=== PATIENT | male | born 1990 | race Two or more races ===

== ENCOUNTER 2021-01-18 01:01 | Inpatient (IN) | payer OTHER ==
[~2021-01-18] VITALS: Ht 170.2 cm; Wt 53.8 kg
[2021-01-18] MEDS ORDERED: EPINEPHrine 1:10,000 [1 MG/10 ML] SYRINGE IVP ONE (01:02)
[2021-01-18] MEDS ORDERED: ATROPINE SULFATE 0.1 MG/ML 10 ML SYRINGE IVP ONE (01:02)
[2021-01-18] MEDS ORDERED: AMIODARONE HCL 50 MG/ML 3 ML VIAL IV ONE (01:02)
[2021-01-18] MEDS ORDERED: SODIUM BICARBONATE [ADULT] 8.4% 50 MEQ/50 ML SYRINGE IVP ONE ×2 (01:02→02:30)
[2021-01-18] MEDS ORDERED: NOREPINEPHRINE 4 MG/D5%-WATER 250 ML IV PRN (01:15)
[2021-01-18] MEDS ORDERED: LevETIRAcetam 1,500 MG in DEXTROSE 5%-WATER 100 ML IV ONE (01:45)
[2021-01-18 02:17] LABS: ABG A-A DIFF O2 248.2 mmHg (10-20.0); ABG BASE EXCESS -26.5 mmol/L (-2.0-3.0); ABG CARBOXYHEMOGLOBIN 0.2 % (0.0-1.5); ABG METHEMOGLOBIN 0.2 % (0.0-1.5); ABG OXYGEN CONTENT 16.8 mL/dL (15.0-23.0); ABG OXYGEN SATURATION 99.4 % (95.0-98.0); ABG PCO2 37 mmHg (35-45); ABG TOTAL HEMOGLOBIN 11.2 G/dL (12.0-18.0); PO2, ARTERIAL BG 427.8 mmHg (92.0-100.0); SOURCE, BLOOD GAS ARTERIAL; TEMPERATURE, FAHRENHEIT, BG 98.7 FAHREN (96.0-98.6)
[2021-01-18 02:20] LABS: COVID AG,FIA SOURCE NASOPHARYNGEAL
[2021-01-18 02:23] LABS: ABG HCO3 6.4 mmol/L (22.0-26.0); ABG PH 6.881 (7.350-7.450); O2 DEVICE,BLOOD GAS VENTILATOR (ROOM AIR); PEEP,BG 5 cm H2O; SITE, BLOOD GAS RT RADIAL; VT, ABG 420 ml
[2021-01-18 02:25] LABS: BASOPHILS % (AUTO) 0.6 % (0.0-2.0); EOSINOPHILS % (AUTO) 1.9 % (1.0-6.0); HEMATOCRIT 32.4 % (41-53); LYMPHOCYTES # (AUTO) 5.1 K/uL (1.0-4.8); LYMPHOCYTES % (AUTO) 17.7 % (22.0-44.0); MEAN CORPUSCULAR HEMOGLOBIN 30.1 pg (26.0-34.0); MEAN CORPUSCULAR VOLUME 97 fL (80-100); MONOCYTES # (AUTO) 1.2 K/uL (0.1-1.0); MONOCYTES % (AUTO) 4.1 % (2.0-9.0); NEUTROPHILS # (AUTO) 21.5 K/uL (1.8-7.7); NEUTROPHILS % (AUTO) 75.7 % (40.0-70.0); PLATELET COUNT (AUTO) 267 K/uL (150-450); RED BLOOD CELL COUNT(AUTO) 3.33 MIL/uL (4.50-5.90); RED CELL DISTRIBUTION WIDTH 14.3 % (11.5-14.5)
[2021-01-18] MEDS ORDERED: SODIUM BICARBONATE 150 MEQ in DEXTROSE 5%-WATER 1,000 ML IV ONE (02:30)
[2021-01-18] MEDS ORDERED: EPINEPHrine 2 MG in DEXTROSE 5%-WATER 248 ML IV PRN (02:30)
[2021-01-18 02:35] LABS: ANION GAP 25 mmol/L (8-16); CALCIUM, TOTAL 9.5 mg/dL (8.8-10.5); CARBON DIOXIDE 11 mmol/L (22-29); CHLORIDE 109 mmol/L (98-107); CREATININE 1.83 mg/dL (0.60-1.30); GLOMERULAR FILTR. RATE CALC 44 mL/min (>60); GLUCOSE,RANDOM 273 mg/dL (70-110); POTASSIUM 3.9 mmol/L (3.5-5.1); SODIUM SERUM 145 mmol/L (136-145); UREA NITROGEN, BLOOD 10 mg/dL (7-18)
[2021-01-18 02:43] LABS: TROPONIN I 0.03 ng/mL (0.00-0.05)
[2021-01-18 02:45] LABS: INR 1.4 (0.9-1.1); PROTHROMBIN TIME 14.6 SEC (9.4-11.6)
[2021-01-18] MEDS ORDERED: 0.9% SODIUM CHLORIDE 10 ML SYRINGE IVP PRN (03:00)
[2021-01-18] MEDS ORDERED: PIPERACILLIN/TAZO 3.375 GM/D5W 50 ML IV SCH (03:00)
[2021-01-18] MEDS ORDERED: ONDANSETRON HCL 4 MG/2 ML VIAL IVP PRN (03:00)
[2021-01-18] MEDS ORDERED: ACETAMINOPHEN 325 MG TABLET PO PRN (03:00)
[2021-01-18 03:01] LABS: ALBUMIN 2.4 g/dL (3.4-5.0); ALKALINE PHOSPHATASE 104 U/L (46-116); BILIRUBIN,TOTAL 0.1 mg/dL (0.1-1.0); CREATINE KINASE, TOTAL ONLY 291 U/L (39-308); TOTAL PROTEIN, SERUM 5.1 g/dL (6.4-8.2)
[2021-01-18] MEDS: PROPOFOL 1000 MG/ISO-OSM 100 ML IV PRN ×2 (03:16→14:14)
[2021-01-18] MEDS ORDERED: IOHEXOL 350 MG/ML 100 ML VIAL ONE (03:25)
[2021-01-18] MEDS ORDERED: SODIUM CHLORIDE 0.9% 100 ML ONE (03:25)
[2021-01-18 03:27] LABS: APPEARANCE,URINE CLOUDY (CLEAR); BILIRUBIN,URINE NEGATIVE (NEGATIVE); GLUCOSE, URINE (UA) 250 mg/dL (NEGATIVE); KETONES,URINE NEGATIVE (NEGATIVE); LEUKOCYTE ESTERASE ,URINE NEGATIVE (NEGATIVE); NITRATE,URINE NEGATIVE (NEGATIVE); OCCULT BLOOD,URINE LARGE (NEGATIVE); PROTEIN,URINE SEE CONFIRM (NEGATIVE); UROBILINOGEN,URINE 0.2 mg/dL (<=1.0)
[2021-01-18] MEDS ORDERED: RISP1TAB48 PO (03:31)
[2021-01-18] MEDS ORDERED: FLUO10CA24 PO (03:31)
[2021-01-18 03:32] LABS: AMPHET/METH SCREEN,URINE NEGATIVE (NEGATIVE); BARBITURATE SCREEN, URINE NEGATIVE (NEGATIVE); BENZODIAZEPINES SCREEN,URINE POSITIVE (NEGATIVE); CANNABINOID SCREEN,URINE NEGATIVE (NEGATIVE); COCAINE SCREEN,URINE POSITIVE (NEGATIVE); METHADONE SCREEN, URINE NEGATIVE (NEGATIVE); OPIATE SCREEN,URINE NEGATIVE (NEGATIVE)
[2021-01-18 03:32] LABS: ALANINE AMINOTRANSFERASE 1277 U/L (12-78); ASPARTATE AMINOTRANSFERASE 1073 U/L (15-37)
[2021-01-18 03:33] LABS: PHENCYCLIDINE SCREEN,URINE NEGATIVE (NEGATIVE)
[2021-01-18 03:36] LABS: LACTIC ACID 24.2 mmol/L (0.4-2.0)
[2021-01-18] MEDS ORDERED: SODIUM CHLORIDE 0.9% 1,000 ML IV ONE (03:45)
[2021-01-18 04:19] LABS: AMORPHOUS SEDIMENT,UR Few /LPF (None Seen); BACTERIA,URINE Few /HPF (None Seen)
[2021-01-18 04:20] LABS: SULFOSALICYLIC ACID,URINE 2+ (Negative)
[2021-01-18 04:22] LABS: ACETAMINOPHEN < 2 mcg/mL (10-30)
[2021-01-18 04:23] LABS: SALICYLATE 2.3 mg/dL (2.8-20.0)
[2021-01-18 05:12] LABS: ABG A-A DIFF O2 117.7 mmHg (10-20.0); ABG BASE EXCESS -2.7 mmol/L (-2.0-3.0); ABG CARBOXYHEMOGLOBIN 0.3 % (0.0-1.5); ABG HCO3 22.4 mmol/L (22.0-26.0); ABG METHEMOGLOBIN 0.3 % (0.0-1.5); ABG OXYGEN CONTENT 16.6 mL/dL (15.0-23.0); ABG OXYGEN SATURATION 97.7 % (95.0-98.0); ABG OXYHEMOGLOBIN 97.1 % (94.0-100.0); ABG PCO2 41 mmHg (35-45); ABG PH 7.366 (7.350-7.450); O2 DEVICE,BLOOD GAS VENTILATOR (ROOM AIR); PEEP,BG 5 cm H2O; PO2, ARTERIAL BG 120.9 mmHg (92.0-100.0); SITE, BLOOD GAS LFT RADIAL; SOURCE, BLOOD GAS ARTERIAL; TEMPERATURE, FAHRENHEIT, BG 98.6 FAHREN (96.0-98.6); VT, ABG 420 ml
[2021-01-18 06:21] LABS: PLATELET MORPHOLOGY COMMENT LARGE PLTS PRESENT
[2021-01-18 06:56] LABS: BASOPHILS % (AUTO) 0.1 % (0.0-2.0); EOSINOPHILS % (AUTO) 0.2 % (1.0-6.0); HEMATOCRIT 34.4 % (41-53); HEMOGLOBIN 11.6 g/dL (13.5-17.5); LYMPHOCYTES # (AUTO) 0.6 K/uL (1.0-4.8); LYMPHOCYTES % (AUTO) 3.9 % (22.0-44.0); MEAN CORPUSCULAR HEMOGLOBIN 30.5 pg (26.0-34.0); MEAN CORPUSCULAR HGB CONC 33.8 G/dL (31.0-37.0); MEAN CORPUSCULAR VOLUME 90 fL (80-100); MONOCYTES # (AUTO) 0.9 K/uL (0.1-1.0); MONOCYTES % (AUTO) 5.6 % (2.0-9.0); NEUTROPHILS # (AUTO) 14.7 K/uL (1.8-7.7); PLATELET COUNT (AUTO) 222 K/uL (150-450); RED BLOOD CELL COUNT(AUTO) 3.81 MIL/uL (4.50-5.90); RED CELL DISTRIBUTION WIDTH 14.3 % (11.5-14.5)
[2021-01-18 07:00] LABS: NEUTROPHILS % (AUTO) 90.2 % (40.0-70.0); PLATELET MORPHOLOGY COMMENT LARGE PLTS PRESENT
[2021-01-18] MEDS ORDERED: PANTOPRAZOLE SODIUM 40 MG/VIAL IVP SCH (07:45)
[2021-01-18] MEDS: PIPERACILLIN/TAZO 3.375 GM/D5W 50 ML IV SCH ×3 (09:06→21:04)
[2021-01-18] MEDS: LevETIRAcetam 500 MG in DEXTROSE 5%-WATER 100 ML IV SCH ×2 (09:08→20:44)
[2021-01-18 09:47] LABS: ANION GAP 6 mmol/L (8-16); CALCIUM, TOTAL 7.7 mg/dL (8.8-10.5); CARBON DIOXIDE 34 mmol/L (22-29); CHLORIDE 107 mmol/L (98-107); CREATININE 1.26 mg/dL (0.60-1.30); GLOMERULAR FILTR. RATE CALC > 60 mL/min (>60); GLUCOSE,RANDOM 123 mg/dL (70-110); POTASSIUM 3.2 mmol/L (3.5-5.1); SODIUM SERUM 147 mmol/L (136-145); UREA NITROGEN, BLOOD 11 mg/dL (7-18)
[2021-01-18 09:52] LABS: ANION GAP 8 mmol/L (8-16); CALCIUM, TOTAL 7.3 mg/dL (8.8-10.5); CARBON DIOXIDE 32 mmol/L (22-29); CHLORIDE 107 mmol/L (98-107); CREATININE 1.32 mg/dL (0.60-1.30); GLOMERULAR FILTR. RATE CALC > 60 mL/min (>60); GLUCOSE,RANDOM 124 mg/dL (70-110); POTASSIUM 3.3 mmol/L (3.5-5.1); SODIUM SERUM 147 mmol/L (136-145); UREA NITROGEN, BLOOD 11 mg/dL (7-18)
[2021-01-18 10:01] LABS: TROPONIN I 1.48 ng/mL (0.00-0.05)
[2021-01-18 10:04] LABS: PHOSPHORUS 3.5 mg/dL (2.5-4.9)
[2021-01-18 10:11] LABS: ALANINE AMINOTRANSFERASE 1522 U/L (12-78); ALBUMIN 3.2 g/dL (3.4-5.0); ALKALINE PHOSPHATASE 78 U/L (46-116); TOTAL PROTEIN, SERUM 6.2 g/dL (6.4-8.2)
[2021-01-18 10:12] LABS: ASPARTATE AMINOTRANSFERASE 1903 U/L (15-37); CREATINE KINASE, TOTAL ONLY 2311 U/L (39-308)
[2021-01-18] MEDS ORDERED: PANTOPRAZOLE SODIUM 40 MG/VIAL IVP ONE (17:45)
[2021-01-18] MEDS: POTASSIUM CHLORIDE IV SCH (18:05)
[2021-01-18] MEDS: SODIUM CHL IV SCH (18:05)
[2021-01-18] MEDS: DEXTROSE IV SCH (18:05)
[2021-01-18] MEDS: LORazepam 2 MG/ML VIAL IVP PRN (19:58)
[2021-01-18 21:02] LABS: ABG A-A DIFF O2 26.8 mmHg (10-20.0); ABG BASE EXCESS 2.3 mmol/L (-2.0-3.0); ABG CARBOXYHEMOGLOBIN 0.3 % (0.0-1.5); ABG HCO3 26.1 mmol/L (22.0-26.0); ABG METHEMOGLOBIN 0.2 % (0.0-1.5); ABG OXYGEN CONTENT 18.8 mL/dL (15.0-23.0); ABG OXYHEMOGLOBIN 98.5 % (94.0-100.0); ABG PCO2 39 mmHg (35-45); ABG PH 7.443 (7.350-7.450); ABG TOTAL HEMOGLOBIN 13.3 G/dL (12.0-18.0); PO2, ARTERIAL BG 179.9 mmHg (92.0-100.0); SOURCE, BLOOD GAS ARTERIAL; TEMPERATURE, FAHRENHEIT, BG 92.2 FAHREN (96.0-98.6)
[2021-01-18 21:03] LABS: O2 DEVICE,BLOOD GAS VENTILATOR (ROOM AIR); PEEP,BG 5 cm H2O; SITE, BLOOD GAS RT RADIAL; VT, ABG 420 ml
[2021-01-18 21:12] LABS: BASOPHILS % (AUTO) 0.2 % (0.0-2.0); EOSINOPHILS % (AUTO) 0.1 % (1.0-6.0); HEMATOCRIT 36.9 % (41-53); HEMOGLOBIN 12.4 g/dL (13.5-17.5); LYMPHOCYTES # (AUTO) 0.7 K/uL (1.0-4.8); LYMPHOCYTES % (AUTO) 4.7 % (22.0-44.0); MEAN CORPUSCULAR HEMOGLOBIN 30.1 pg (26.0-34.0); MEAN CORPUSCULAR HGB CONC 33.6 G/dL (31.0-37.0); MEAN CORPUSCULAR VOLUME 90 fL (80-100); MONOCYTES # (AUTO) 0.7 K/uL (0.1-1.0); MONOCYTES % (AUTO) 4.5 % (2.0-9.0); NEUTROPHILS # (AUTO) 13.8 K/uL (1.8-7.7); PLATELET COUNT (AUTO) 211 K/uL (150-450); RED BLOOD CELL COUNT(AUTO) 4.13 MIL/uL (4.50-5.90); RED CELL DISTRIBUTION WIDTH 14.4 % (11.5-14.5)
[2021-01-18 21:28] LABS: NEUTROPHILS % (AUTO) 90.5 % (40.0-70.0)
[2021-01-18 21:48] LABS: MAGNESIUM 2.2 mg/dL (1.80-2.40); PHOSPHORUS 3.7 mg/dL (2.5-4.9)
[2021-01-18] MEDS: NOREPINEPHRINE 4 MG/D5%-WATER 250 ML IV PRN (22:49)
[2021-01-18 22:55] LABS: APPEARANCE,URINE CLEAR (CLEAR); BILIRUBIN,URINE NEGATIVE (NEGATIVE); GLUCOSE, URINE (UA) 250 mg/dL (NEGATIVE); KETONES,URINE NEGATIVE (NEGATIVE); LEUKOCYTE ESTERASE ,URINE NEGATIVE (NEGATIVE); NITRATE,URINE NEGATIVE (NEGATIVE); OCCULT BLOOD,URINE LARGE (NEGATIVE); PROTEIN,URINE SEE CONFIRM (NEGATIVE); UROBILINOGEN,URINE 0.2 mg/dL (<=1.0)
[2021-01-18 22:57] LABS: CREATININE,URINE RANDOM 67.2 mg/dL (30.0-125.0); SODIUM,URINE RANDOM 168 mmol/l (20-110); UREA NITROGEN,URINE RANDOM 249 mg/dL (350-1000)
[2021-01-18 23:05] LABS: RBC,URINE 0-2 /HPF (0-2)
[2021-01-18 23:06] LABS: BACTERIA,URINE Rare /HPF (None Seen); SQUAMOUS EPITHELIAL CELL,UR None Seen /LPF (None Seen)
[2021-01-19] MEDS: PROPOFOL 1000 MG/ISO-OSM 100 ML IV PRN ×4 (00:22→22:11)
[2021-01-19] MEDS: DEXTROSE IV SCH ×3 (01:54→19:09)
[2021-01-19] MEDS: POTASSIUM CHLORIDE IV SCH ×3 (01:54→19:09)
[2021-01-19] MEDS: SODIUM CHL IV SCH ×3 (01:54→19:09)
[2021-01-19 02:33] LABS: BASOPHILS % (AUTO) 0.2 % (0.0-2.0); EOSINOPHILS % (AUTO) 0.2 % (1.0-6.0); HEMATOCRIT 38.4 % (41-53); HEMOGLOBIN 12.8 g/dL (13.5-17.5); LYMPHOCYTES # (AUTO) 1.1 K/uL (1.0-4.8); LYMPHOCYTES % (AUTO) 6.6 % (22.0-44.0); MEAN CORPUSCULAR HEMOGLOBIN 29.8 pg (26.0-34.0); MEAN CORPUSCULAR HGB CONC 33.4 G/dL (31.0-37.0); MEAN CORPUSCULAR VOLUME 89 fL (80-100); MONOCYTES # (AUTO) 0.9 K/uL (0.1-1.0); MONOCYTES % (AUTO) 5.4 % (2.0-9.0); NEUTROPHILS # (AUTO) 14.5 K/uL (1.8-7.7); PLATELET COUNT (AUTO) 221 K/uL (150-450); RED CELL DISTRIBUTION WIDTH 14.2 % (11.5-14.5)
[2021-01-19 02:52] LABS: ALANINE AMINOTRANSFERASE 1277 U/L (12-78); ALBUMIN 3.2 g/dL (3.4-5.0); ALKALINE PHOSPHATASE 77 U/L (46-116); ANION GAP 8 mmol/L (8-16); ASPARTATE AMINOTRANSFERASE 836 U/L (15-37); CALCIUM, TOTAL 7.9 mg/dL (8.8-10.5); CARBON DIOXIDE 30 mmol/L (22-29); CHLORIDE 104 mmol/L (98-107); CREATININE 0.97 mg/dL (0.60-1.30); GLOMERULAR FILTR. RATE CALC > 60 mL/min (>60); GLUCOSE,RANDOM 116 mg/dL (70-110); PHOSPHORUS 4.4 mg/dL (2.5-4.9); POTASSIUM 3.6 mmol/L (3.5-5.1); SODIUM SERUM 142 mmol/L (136-145); TOTAL PROTEIN, SERUM 6.3 g/dL (6.4-8.2); UREA NITROGEN, BLOOD 10 mg/dL (7-18)
[2021-01-19 02:58] LABS: ABG A-A DIFF O2 31.3 mmHg (10-20.0); ABG CARBOXYHEMOGLOBIN 0.3 % (0.0-1.5); ABG HCO3 26.6 mmol/L (22.0-26.0); ABG METHEMOGLOBIN 0.3 % (0.0-1.5); ABG OXYGEN CONTENT 19.5 mL/dL (15.0-23.0); ABG OXYGEN SATURATION 99.2 % (95.0-98.0); ABG OXYHEMOGLOBIN 98.6 % (94.0-100.0); ABG PCO2 38 mmHg (35-45); ABG PH 7.465 (7.350-7.450); ABG TOTAL HEMOGLOBIN 13.8 G/dL (12.0-18.0); PO2, ARTERIAL BG 178.2 mmHg (92.0-100.0); SOURCE, BLOOD GAS ARTERIAL
[2021-01-19 02:59] LABS: O2 DEVICE,BLOOD GAS VENTILATOR (ROOM AIR); PEEP,BG 5 cm H2O; SITE, BLOOD GAS RT RADIAL; VT, ABG 420 ml
[2021-01-19] MEDS: PIPERACILLIN/TAZO 3.375 GM/D5W 50 ML IV SCH ×4 (03:02→21:08)
[2021-01-19 03:03] LABS: NEUTROPHILS % (AUTO) 87.6 % (40.0-70.0)
[2021-01-19 07:00] VITALS: BP 140/74
[2021-01-19 08:00] VITALS: BP 114/86
[2021-01-19 08:23] LABS: ANION GAP 10 mmol/L (8-16); CALCIUM, TOTAL 7.8 mg/dL (8.8-10.5); CARBON DIOXIDE 29 mmol/L (22-29); CHLORIDE 103 mmol/L (98-107); CREATININE 0.86 mg/dL (0.60-1.30); GLOMERULAR FILTR. RATE CALC > 60 mL/min (>60); GLUCOSE,RANDOM 101 mg/dL (70-110); POTASSIUM 3.6 mmol/L (3.5-5.1); SODIUM SERUM 142 mmol/L (136-145); UREA NITROGEN, BLOOD 9 mg/dL (7-18)
[2021-01-19 08:26] LABS: ALANINE AMINOTRANSFERASE 1173 U/L (12-78); ALBUMIN 3.1 g/dL (3.4-5.0); ALKALINE PHOSPHATASE 76 U/L (46-116); ASPARTATE AMINOTRANSFERASE 660 U/L (15-37); PHOSPHORUS 4.1 mg/dL (2.5-4.9); TOTAL PROTEIN, SERUM 6.2 g/dL (6.4-8.2)
[2021-01-19 08:35] LABS: SITE, BLOOD GAS RT RADIAL; SOURCE, BLOOD GAS ARTERIAL; TEMPERATURE, FAHRENHEIT, BG 93.5 FAHREN (96.0-98.6)
[2021-01-19 08:36] LABS: ABG PCO2 36 mmHg (35-45); ABG PH 7.494 (7.350-7.450); PO2, ARTERIAL BG 182.2 mmHg (92.0-100.0)
[2021-01-19 08:37] LABS: ABG BASE EXCESS 3.8 mmol/L (-2.0-3.0); ABG HCO3 27.7 mmol/L (22.0-26.0); ABG TOTAL HEMOGLOBIN 13.8 G/dL (12.0-18.0)
[2021-01-19 08:38] LABS: ABG CARBOXYHEMOGLOBIN 0.3 % (0.0-1.5); ABG METHEMOGLOBIN 0.3 % (0.0-1.5); ABG OXYHEMOGLOBIN 98.7 % (94.0-100.0)
[2021-01-19 08:39] LABS: ABG OXYGEN CONTENT 19.3 mL/dL (15.0-23.0); ABG OXYGEN SATURATION 99.3 % (95.0-98.0)
[2021-01-19 08:40] LABS: O2 DEVICE,BLOOD GAS VENTILATOR (ROOM AIR); PEEP,BG 5 cm H2O; SPONTANEOUS VT, BG 444 ml; VT, ABG 420 ml
[2021-01-19] MEDS: LevETIRAcetam 500 MG in DEXTROSE 5%-WATER 100 ML IV SCH ×2 (09:30→20:30)
[2021-01-19] MEDS: PANTOPRAZOLE SODIUM 40 MG/VIAL IVP SCH (11:53)
[2021-01-19 12:00] VITALS: BP 142/86
[2021-01-19 13:30] LABS: ABG A-A DIFF O2 48.9 mmHg (10-20.0); ABG BASE EXCESS 4.2 mmol/L (-2.0-3.0); ABG CARBOXYHEMOGLOBIN 0.3 % (0.0-1.5); ABG HCO3 27.9 mmol/L (22.0-26.0); ABG METHEMOGLOBIN 0.3 % (0.0-1.5); ABG OXYGEN CONTENT 18.6 mL/dL (15.0-23.0); ABG OXYGEN SATURATION 98.6 % (95.0-98.0); ABG PCO2 41 mmHg (35-45); ABG PH 7.451 (7.350-7.450); ABG TOTAL HEMOGLOBIN 13.3 G/dL (12.0-18.0); O2 DEVICE,BLOOD GAS VENTILATOR (ROOM AIR); PO2, ARTERIAL BG 152.6 mmHg (92.0-100.0); SITE, BLOOD GAS RT RADIAL; SOURCE, BLOOD GAS ARTERIAL; TEMPERATURE, FAHRENHEIT, BG 98.8 FAHREN (96.0-98.6)
[2021-01-19 13:31] LABS: PEEP,BG 5 cm H2O; SPONTANEOUS VT, BG 551 ml; VT, ABG 420 ml
[2021-01-19 14:48] LABS: ALANINE AMINOTRANSFERASE 1092 U/L (12-78); ALBUMIN 3.1 g/dL (3.4-5.0); ALKALINE PHOSPHATASE 74 U/L (46-116); ANION GAP 9 mmol/L (8-16); ASPARTATE AMINOTRANSFERASE 571 U/L (15-37); BILIRUBIN,TOTAL 0.9 mg/dL (0.1-1.0); CARBON DIOXIDE 29 mmol/L (22-29); CHLORIDE 105 mmol/L (98-107); CREATININE 0.88 mg/dL (0.60-1.30); GLOMERULAR FILTR. RATE CALC > 60 mL/min (>60); GLUCOSE,RANDOM 108 mg/dL (70-110); PHOSPHORUS 3.7 mg/dL (2.5-4.9); POTASSIUM 3.3 mmol/L (3.5-5.1); SODIUM SERUM 143 mmol/L (136-145); TOTAL PROTEIN, SERUM 6.3 g/dL (6.4-8.2); UREA NITROGEN, BLOOD 9 mg/dL (7-18)
[2021-01-19] MEDS ORDERED: MAGNESIUM SULFATE 2 GM/WATER 50 ML IV ONE (17:00)
[2021-01-19] MEDS: POTASSIUM CHL 10 MEQ/WATER 50 ML IV PRN ×2 (19:26→20:29)
[2021-01-19 23:09] LABS: ANION GAP 8 mmol/L (8-16); CALCIUM, TOTAL 7.5 mg/dL (8.8-10.5); CARBON DIOXIDE 27 mmol/L (22-29); CHLORIDE 106 mmol/L (98-107); GLOMERULAR FILTR. RATE CALC > 60 mL/min (>60); GLUCOSE,RANDOM 135 mg/dL (70-110); POTASSIUM 3.7 mmol/L (3.5-5.1); SODIUM SERUM 141 mmol/L (136-145); UREA NITROGEN, BLOOD 5 mg/dL (7-18)
[2021-01-19 23:15] LABS: ALANINE AMINOTRANSFERASE 879 U/L (12-78); ALBUMIN 2.7 g/dL (3.4-5.0); ALKALINE PHOSPHATASE 68 U/L (46-116); ASPARTATE AMINOTRANSFERASE 419 U/L (15-37); BILIRUBIN,TOTAL 0.7 mg/dL (0.1-1.0); TOTAL PROTEIN, SERUM 5.6 g/dL (6.4-8.2)
[2021-01-20] MEDS: PIPERACILLIN/TAZO 3.375 GM/D5W 50 ML IV SCH ×4 (02:42→20:49)
[2021-01-20] MEDS: PROPOFOL 1000 MG/ISO-OSM 100 ML IV PRN ×4 (04:45→18:53)
[2021-01-20] MEDS: POTASSIUM CHLORIDE IV SCH ×3 (04:45→19:52)
[2021-01-20] MEDS: DEXTROSE IV SCH ×3 (04:45→19:52)
[2021-01-20] MEDS: SODIUM CHL IV SCH ×3 (04:45→19:52)
[2021-01-20 04:58] LABS: BASOPHILS % (AUTO) 0.1 % (0.0-2.0); EOSINOPHILS % (AUTO) 0.4 % (1.0-6.0); HEMATOCRIT 34.3 % (41-53); HEMOGLOBIN 11.2 g/dL (13.5-17.5); LYMPHOCYTES % (AUTO) 7.4 % (22.0-44.0); MEAN CORPUSCULAR HGB CONC 32.7 G/dL (31.0-37.0); MEAN CORPUSCULAR VOLUME 92 fL (80-100); MONOCYTES # (AUTO) 1.1 K/uL (0.1-1.0); MONOCYTES % (AUTO) 8.4 % (2.0-9.0); NEUTROPHILS # (AUTO) 11.4 K/uL (1.8-7.7); NEUTROPHILS % (AUTO) 83.7 % (40.0-70.0); PLATELET COUNT (AUTO) 186 K/uL (150-450); RED BLOOD CELL COUNT(AUTO) 3.74 MIL/uL (4.50-5.90); RED CELL DISTRIBUTION WIDTH 14.8 % (11.5-14.5)
[2021-01-20 05:07] LABS: ANION GAP 10 mmol/L (8-16); CALCIUM, TOTAL 7.9 mg/dL (8.8-10.5); CARBON DIOXIDE 26 mmol/L (22-29); CHLORIDE 107 mmol/L (98-107); CREATININE 0.99 mg/dL (0.60-1.30); GLOMERULAR FILTR. RATE CALC > 60 mL/min (>60); GLUCOSE,RANDOM 94 mg/dL (70-110); POTASSIUM 3.9 mmol/L (3.5-5.1); SODIUM SERUM 143 mmol/L (136-145); UREA NITROGEN, BLOOD 5 mg/dL (7-18)
[2021-01-20 05:17] LABS: ALANINE AMINOTRANSFERASE 865 U/L (12-78); ALBUMIN 2.8 g/dL (3.4-5.0); ALKALINE PHOSPHATASE 70 U/L (46-116); ASPARTATE AMINOTRANSFERASE 408 U/L (15-37); BILIRUBIN,TOTAL 0.7 mg/dL (0.1-1.0); PHOSPHORUS 2.9 mg/dL (2.5-4.9); TOTAL PROTEIN, SERUM 5.8 g/dL (6.4-8.2)
[2021-01-20] MEDS: LevETIRAcetam 500 MG in DEXTROSE 5%-WATER 100 ML IV SCH ×2 (08:17→20:50)
[2021-01-20] MEDS: PANTOPRAZOLE SODIUM 40 MG/VIAL IVP SCH (08:29)
[2021-01-20] MEDS ORDERED: ACETAMINOPHEN 650 MG/20.3 ML SOLUTION UDCUP PO ONE (12:45)
[2021-01-20 13:15] VITALS: BP 109/68
[2021-01-20] MEDS ORDERED: SODIUM CHLORIDE 0.9% 250 ML IV ONE ×2 (15:01→20:54)
[2021-01-20 16:00] VITALS: BP 100/52
[2021-01-20 20:00] VITALS: BP 115/74
[2021-01-21] VITALS: BP 98/56
[2021-01-21] MEDS: PROPOFOL 1000 MG/ISO-OSM 100 ML IV PRN ×4 (01:24→18:40)
[2021-01-21] MEDS: PIPERACILLIN/TAZO 3.375 GM/D5W 50 ML IV SCH ×4 (02:18→21:08)
[2021-01-21 04:00] VITALS: BP 104/56
[2021-01-21] MEDS: POTASSIUM CHLORIDE IV SCH ×2 (04:37→13:15)
[2021-01-21] MEDS: SODIUM CHL IV SCH ×2 (04:37→13:15)
[2021-01-21] MEDS: DEXTROSE IV SCH ×2 (04:37→13:15)
[2021-01-21 08:00] VITALS: BP 110/58
[2021-01-21] MEDS: PANTOPRAZOLE SODIUM 40 MG/VIAL IVP SCH (08:12)
[2021-01-21] MEDS: LevETIRAcetam 500 MG in DEXTROSE 5%-WATER 100 ML IV SCH ×2 (08:12→21:08)
[2021-01-21] MEDS: SOD FERRIC GLUC COMPLX/SUCROSE 125 MG in SODIUM CHLORIDE 0.9% 100 ML IV SCH (09:47)
[2021-01-21] MEDS: DEXMEDETOMIDINE HCL 400 MCG in SODIUM CHLORIDE 0.9% 96 ML IV PRN (09:48)
[2021-01-21 12:00] VITALS: BP 97/52
[2021-01-21 16:00] VITALS: BP 97/53
[2021-01-21] MEDS ORDERED: FentaNYL CIT 1000MCG/0.9% NACL 100 ML IV PRN (19:30)
[2021-01-21 20:00] VITALS: BP 112/73
[2021-01-21] MEDS ORDERED: SODIUM CHLORIDE 0.9% 250 ML IV ONE (23:02)
[2021-01-21] MEDS: NOREPINEPHRINE 4 MG/D5%-WATER 250 ML IV PRN (23:28)
[2021-01-22] VITALS: BP 103/56
[2021-01-22 01:06] LABS: HEPATITIS C AB (EIA) <0.1 s/co ratio (0.0-0.9)
[2021-01-22] MEDS: DEXTROSE IV SCH ×2 (02:44→17:38)
[2021-01-22] MEDS: POTASSIUM CHLORIDE IV SCH ×2 (02:44→17:38)
[2021-01-22] MEDS: SODIUM CHL IV SCH ×2 (02:44→17:38)
[2021-01-22] MEDS: PROPOFOL 1000 MG/ISO-OSM 100 ML IV PRN (02:45)
[2021-01-22] MEDS: PIPERACILLIN/TAZO 3.375 GM/D5W 50 ML IV SCH ×4 (03:32→21:25)
[2021-01-22 04:00] VITALS: BP 102/75
[2021-01-22 05:07] LABS: ANION GAP 11 mmol/L (8-16); CALCIUM, TOTAL 7.9 mg/dL (8.8-10.5); CARBON DIOXIDE 25 mmol/L (22-29); CHLORIDE 106 mmol/L (98-107); CREATININE 0.79 mg/dL (0.60-1.30); GLOMERULAR FILTR. RATE CALC > 60 mL/min (>60); GLUCOSE,RANDOM 98 mg/dL (70-110); PHOSPHORUS 2.8 mg/dL (2.5-4.9); POTASSIUM 3.7 mmol/L (3.5-5.1); SODIUM SERUM 142 mmol/L (136-145); UREA NITROGEN, BLOOD 4 mg/dL (7-18)
[2021-01-22 08:00] VITALS: BP 101/61
[2021-01-22] MEDS: SOD FERRIC GLUC COMPLX/SUCROSE 125 MG in SODIUM CHLORIDE 0.9% 100 ML IV SCH (08:14)
[2021-01-22] MEDS: PANTOPRAZOLE SODIUM 40 MG/VIAL IVP SCH (08:15)
[2021-01-22] MEDS: LevETIRAcetam 500 MG in DEXTROSE 5%-WATER 100 ML IV SCH ×2 (08:15→21:26)
[2021-01-22] MEDS ORDERED: MAGNESIUM SULFATE 3 GM in DEXTROSE 5%-WATER 100 ML IV ONE (08:30)
[2021-01-22 12:00] VITALS: BP 93/58
[2021-01-22 12:07] LABS: ABG A-A DIFF O2 85.5 mmHg (10-20.0); ABG BASE EXCESS -1.5 mmol/L (-2.0-3.0); ABG CARBOXYHEMOGLOBIN 0.3 % (0.0-1.5); ABG HCO3 23.5 mmol/L (22.0-26.0); ABG METHEMOGLOBIN 0.3 % (0.0-1.5); ABG OXYGEN SATURATION 98.4 % (95.0-98.0); ABG OXYHEMOGLOBIN 97.8 % (94.0-100.0); ABG PCO2 38 mmHg (35-45); ABG PH 7.403 (7.350-7.450); ABG TOTAL HEMOGLOBIN 11.5 G/dL (12.0-18.0); CPAP, BG 0 cm H2O; O2 DEVICE,BLOOD GAS VENTILATOR (ROOM AIR); PO2, ARTERIAL BG 119.6 mmHg (92.0-100.0); PRESSURE SUPPORT, BG 8 cm H2O; SITE, BLOOD GAS RT RADIAL; SOURCE, BLOOD GAS ARTERIAL; SPONTANEOUS VT, BG 450 ml; TEMPERATURE, FAHRENHEIT, BG 98.6 FAHREN (96.0-98.6); VENT MODE, BG CPAP (ROOM AIR)
[2021-01-22] MEDS: DEXMEDETOMIDINE HCL 400 MCG in SODIUM CHLORIDE 0.9% 96 ML IV PRN (13:32)
[2021-01-22 16:00] VITALS: BP 93/53
[2021-01-22 20:04] VITALS: BP 138/85
[2021-01-22] MEDS ORDERED: SODIUM CHLORIDE 0.9% 250 ML IV ONE (22:10)
[2021-01-23 00:07] VITALS: BP 123/78
[2021-01-23] MEDS: PIPERACILLIN/TAZO 3.375 GM/D5W 50 ML IV SCH ×4 (02:51→20:24)
[2021-01-23 04:01] VITALS: BP 112/70
[2021-01-23] MEDS: DEXMEDETOMIDINE HCL 400 MCG in SODIUM CHLORIDE 0.9% 96 ML IV PRN (05:21)
[2021-01-23 05:25] LABS: ANION GAP 6 mmol/L (8-16); CALCIUM, TOTAL 8.5 mg/dL (8.8-10.5); CARBON DIOXIDE 26 mmol/L (22-29); CHLORIDE 106 mmol/L (98-107); CREATININE 0.86 mg/dL (0.60-1.30); GLOMERULAR FILTR. RATE CALC > 60 mL/min (>60); GLUCOSE,RANDOM 100 mg/dL (70-110); PHOSPHORUS 2.7 mg/dL (2.5-4.9); SODIUM SERUM 138 mmol/L (136-145); UREA NITROGEN, BLOOD 9 mg/dL (7-18)
[2021-01-23 08:00] VITALS: BP 123/83
[2021-01-23] MEDS: DEXTROSE 5%-0.45% SODIUM CHL 1,000 ML IV SCH ×3 (08:33→20:24)
[2021-01-23] MEDS: PANTOPRAZOLE SODIUM 40 MG/VIAL IVP SCH (08:48)
[2021-01-23] MEDS: SOD FERRIC GLUC COMPLX/SUCROSE 125 MG in SODIUM CHLORIDE 0.9% 100 ML IV SCH (10:23)
[2021-01-23] MEDS: LevETIRAcetam 500 MG in DEXTROSE 5%-WATER 100 ML IV SCH ×2 (10:23→20:24)
[2021-01-23 12:00] VITALS: BP 123/77
[2021-01-23 16:00] VITALS: BP 90/55
[2021-01-23] MEDS: LORazepam 2 MG/ML VIAL IVP PRN ×2 (17:08→21:51)
[2021-01-23 20:07] VITALS: BP 99/59
[2021-01-23] MEDS ORDERED: SODIUM CHLORIDE 0.9% 250 ML IV ONE (20:58)
[2021-01-24 00:07] VITALS: BP 112/80
[2021-01-24] MEDS: DEXTROSE 5%-0.45% SODIUM CHL 1,000 ML IV SCH ×3 (03:21→17:41)
[2021-01-24] MEDS: PIPERACILLIN/TAZO 3.375 GM/D5W 50 ML IV SCH ×4 (03:21→22:00)
[2021-01-24 04:02] VITALS: BP 120/67
[2021-01-24 05:13] LABS: ANION GAP 6 mmol/L (8-16); CALCIUM, TOTAL 8.1 mg/dL (8.8-10.5); CARBON DIOXIDE 26 mmol/L (22-29); CHLORIDE 104 mmol/L (98-107); GLOMERULAR FILTR. RATE CALC > 60 mL/min (>60); GLUCOSE,RANDOM 119 mg/dL (70-110); PHOSPHORUS 2.9 mg/dL (2.5-4.9); SODIUM SERUM 136 mmol/L (136-145); UREA NITROGEN, BLOOD 6 mg/dL (7-18)
[2021-01-24 05:20] LABS: POTASSIUM 2.9 mmol/L (3.5-5.1)
[2021-01-24] MEDS: POTASSIUM CHL 10 MEQ/WATER 50 ML IV PRN ×6 (05:24→22:01)
[2021-01-24] MEDS ORDERED: MAGNESIUM SULFATE 3 GM in DEXTROSE 5%-WATER 100 ML IV ONE (08:30)
[2021-01-24] MEDS: POTASSIUM CHL 10 MEQ/WATER 50 ML IV SCH ×3 (09:27→10:30)
[2021-01-24] MEDS: PANTOPRAZOLE SODIUM 40 MG/VIAL IVP SCH (09:51)
[2021-01-24] MEDS: SOD FERRIC GLUC COMPLX/SUCROSE 125 MG in SODIUM CHLORIDE 0.9% 100 ML IV SCH (09:51)
[2021-01-24] MEDS: LevETIRAcetam 500 MG in DEXTROSE 5%-WATER 100 ML IV SCH ×2 (09:52→19:58)
[2021-01-24] MEDS ORDERED: SODIUM CHLORIDE 0.9% 250 ML IV ONE (10:03)
[2021-01-24 11:29] LABS: POTASSIUM 3.9 mmol/L (3.5-5.1)
[2021-01-24] MEDS: LORazepam 2 MG/ML VIAL IVP PRN ×2 (12:01→19:32)
[2021-01-24 12:40] LABS: BASOPHILS % (AUTO) 0.6 % (0.0-2.0); EOSINOPHILS % (AUTO) 3.9 % (1.0-6.0); HEMATOCRIT 32.2 % (41-53); HEMOGLOBIN 10.7 g/dL (13.5-17.5); LYMPHOCYTES # (AUTO) 0.9 K/uL (1.0-4.8); LYMPHOCYTES % (AUTO) 11.2 % (22.0-44.0); MEAN CORPUSCULAR HEMOGLOBIN 30.5 pg (26.0-34.0); MEAN CORPUSCULAR HGB CONC 33.1 G/dL (31.0-37.0); MEAN CORPUSCULAR VOLUME 92 fL (80-100); MONOCYTES # (AUTO) 0.9 K/uL (0.1-1.0); MONOCYTES % (AUTO) 10.7 % (2.0-9.0); NEUTROPHILS % (AUTO) 73.6 % (40.0-70.0); PLATELET COUNT (AUTO) 274 K/uL (150-450); RED CELL DISTRIBUTION WIDTH 14.3 % (11.5-14.5)
[2021-01-24] MEDS ORDERED: POTASSIUM CHL 10 MEQ/WATER 50 ML IV SCH (13:30)
[2021-01-24 14:36] VITALS: BP 126/88
[2021-01-24] MEDS: MAGNESIUM SULFATE 3 GM in DEXTROSE 5%-WATER 100 ML IV ONE ×2 (14:55→15:17)
[2021-01-24 15:29] VITALS: BP 115/72
[2021-01-24 17:17] LABS: BASOPHILS % (AUTO) 0.4 % (0.0-2.0); EOSINOPHILS % (AUTO) 3.1 % (1.0-6.0); HEMATOCRIT 36.2 % (41-53); HEMOGLOBIN 12.1 g/dL (13.5-17.5); LYMPHOCYTES # (AUTO) 1.4 K/uL (1.0-4.8); LYMPHOCYTES % (AUTO) 14.2 % (22.0-44.0); MEAN CORPUSCULAR HEMOGLOBIN 30.6 pg (26.0-34.0); MEAN CORPUSCULAR HGB CONC 33.5 G/dL (31.0-37.0); MEAN CORPUSCULAR VOLUME 91 fL (80-100); MONOCYTES # (AUTO) 1.2 K/uL (0.1-1.0); NEUTROPHILS # (AUTO) 6.9 K/uL (1.8-7.7); NEUTROPHILS % (AUTO) 70.3 % (40.0-70.0); PLATELET COUNT (AUTO) 344 K/uL (150-450); RED BLOOD CELL COUNT(AUTO) 3.97 MIL/uL (4.50-5.90); RED CELL DISTRIBUTION WIDTH 14.9 % (11.5-14.5)
[2021-01-24 20:29] VITALS: BP 119/83
[2021-01-24] MEDS ORDERED: LORazepam 2 MG/ML VIAL IM PRN (20:45)
[2021-01-24] MEDS ORDERED: HALOPERIDOL LACTATE 5 MG/ML VIAL IM PRN (20:45)
[2021-01-25] VITALS (7 sets, daily range): BP systolic 113–138; BP diastolic 72–79
[2021-01-25] MEDS: DEXTROSE 5%-0.45% SODIUM CHL 1,000 ML IV SCH ×2 (00:50→07:48)
[2021-01-25] MEDS: POTASSIUM CHL 10 MEQ/WATER 50 ML IV PRN ×3 (02:29→04:38)
[2021-01-25] MEDS: PIPERACILLIN/TAZO 3.375 GM/D5W 50 ML IV SCH (03:52)
[2021-01-25] MEDS ORDERED: SODIUM CHLORIDE 0.9% 250 ML IV ONE (03:53)
[2021-01-25] MEDS: PANTOPRAZOLE SODIUM 40 MG/VIAL IVP SCH (07:55)
[2021-01-25 08:10] LABS: ALANINE AMINOTRANSFERASE 245 U/L (12-78); ALBUMIN 3.1 g/dL (3.4-5.0); ALKALINE PHOSPHATASE 88 U/L (46-116); ANION GAP 8 mmol/L (8-16); ASPARTATE AMINOTRANSFERASE 109 U/L (15-37); BILIRUBIN,TOTAL 1.3 mg/dL (0.1-1.0); CALCIUM, TOTAL 8.4 mg/dL (8.8-10.5); CARBON DIOXIDE 26 mmol/L (22-29); CHLORIDE 103 mmol/L (98-107); CREATINE KINASE, TOTAL ONLY 2327 U/L (39-308); CREATININE 0.76 mg/dL (0.60-1.30); GLOMERULAR FILTR. RATE CALC > 60 mL/min (>60); GLUCOSE,RANDOM 111 mg/dL (70-110); PHOSPHORUS 2.6 mg/dL (2.5-4.9); POTASSIUM 4.1 mmol/L (3.5-5.1); SODIUM SERUM 137 mmol/L (136-145); TOTAL PROTEIN, SERUM 7.1 g/dL (6.4-8.2); UREA NITROGEN, BLOOD 4 mg/dL (7-18)
[2021-01-25] MEDS: LevETIRAcetam 500 MG in DEXTROSE 5%-WATER 100 ML IV SCH ×2 (08:47→20:38)
[2021-01-25] MEDS: LORazepam 2 MG/ML VIAL IVP PRN ×2 (09:11→19:33)
[2021-01-25] MEDS: SOD FERRIC GLUC COMPLX/SUCROSE 125 MG in SODIUM CHLORIDE 0.9% 100 ML IV SCH (09:15)
[2021-01-26] MEDS: LORazepam 2 MG/ML VIAL IVP PRN ×3 (01:48→20:00)
[2021-01-26 04:03] VITALS: BP 121/74
[2021-01-26 07:22] VITALS: BP 123/69
[2021-01-26] MEDS: LevETIRAcetam 500 MG in DEXTROSE 5%-WATER 100 ML IV SCH (08:20)
[2021-01-26] MEDS: PANTOPRAZOLE SODIUM 40 MG/VIAL IVP SCH (08:20)
[2021-01-26 08:43] LABS: ANION GAP 15 mmol/L (8-16); CALCIUM, TOTAL 9.4 mg/dL (8.8-10.5); CARBON DIOXIDE 23 mmol/L (22-29); CHLORIDE 101 mmol/L (98-107); GLOMERULAR FILTR. RATE CALC > 60 mL/min (>60); GLUCOSE,RANDOM 95 mg/dL (70-110); PHOSPHORUS 3.4 mg/dL (2.5-4.9); POTASSIUM 3.8 mmol/L (3.5-5.1); SODIUM SERUM 139 mmol/L (136-145); UREA NITROGEN, BLOOD 15 mg/dL (7-18)
[2021-01-26 12:30] VITALS: BP 122/68
[2021-01-26 16:15] VITALS: BP 118/82
[2021-01-26 19:41] VITALS: BP 106/63
[2021-01-26] MEDS: LevETIRAcetam 500 MG TABLET PO SCH (19:50)
[2021-01-27 00:24] VITALS: BP 111/69
[2021-01-27 05:11] VITALS: BP 121/57
[2021-01-27 07:20] LABS: ANION GAP 9 mmol/L (8-16); CARBON DIOXIDE 27 mmol/L (22-29); CHLORIDE 98 mmol/L (98-107); CREATININE 0.71 mg/dL (0.60-1.30); GLOMERULAR FILTR. RATE CALC > 60 mL/min (>60); GLUCOSE,RANDOM 89 mg/dL (70-110); PHOSPHORUS 3.5 mg/dL (2.5-4.9); POTASSIUM 3.6 mmol/L (3.5-5.1); SODIUM SERUM 134 mmol/L (136-145); UREA NITROGEN, BLOOD 18 mg/dL (7-18)
[2021-01-27] MEDS ORDERED: MAGNESIUM SULFATE 4 GM/WATER 100 ML IV ONE (08:00)
[2021-01-27 08:21] VITALS: BP 121/83
[2021-01-27] MEDS: LevETIRAcetam 500 MG TABLET PO SCH ×2 (08:34→20:00)
[2021-01-27] MEDS: PANTOPRAZOLE SODIUM 40 MG DR TABLET PO SCH (08:34)
[2021-01-27 11:16] VITALS: BP 101/58
[2021-01-27] MEDS ORDERED: MAGNESIUM OXIDE 400 MG TABLET PO PRN (12:30)
[2021-01-27] MEDS ORDERED: MAGNESIUM SULFATE 2 GM/WATER 50 ML IV PRN (12:30)
[2021-01-27] MEDS ORDERED: MAGNESIUM SULFATE 4 GM/WATER 100 ML IV PRN (12:30)
[2021-01-27 13:27] LABS: ALBUMIN 3.4 g/dL (3.4-5.0)
[2021-01-27] MEDS ORDERED: MAGNESIUM SULFATE 2 GM/WATER 50 ML IV ONE (15:45)
[2021-01-27 15:52] VITALS: BP 105/61
[2021-01-27 19:09] VITALS: BP 123/63
[2021-01-27] MEDS: HEPARIN SODIUM,PORCINE 5,000 UNITS/ML VIAL SQ SCH (20:01)
[2021-01-28] VITALS (7 sets, daily range): BP systolic 105–120; BP diastolic 56–89
[2021-01-28 07:02] LABS: ANION GAP 4 mmol/L (8-16); CALCIUM, TOTAL 8.6 mg/dL (8.8-10.5); CARBON DIOXIDE 28 mmol/L (22-29); CHLORIDE 99 mmol/L (98-107); CREATINE KINASE, TOTAL ONLY 641 U/L (39-308); CREATININE 0.84 mg/dL (0.60-1.30); GLOMERULAR FILTR. RATE CALC > 60 mL/min (>60); GLUCOSE,RANDOM 91 mg/dL (70-110); PHOSPHORUS 3.8 mg/dL (2.5-4.9); POTASSIUM 3.4 mmol/L (3.5-5.1); SODIUM SERUM 131 mmol/L (136-145); UREA NITROGEN, BLOOD 15 mg/dL (7-18)
[2021-01-28] MEDS: LevETIRAcetam 500 MG TABLET PO SCH ×2 (07:52→19:54)
[2021-01-28] MEDS: PANTOPRAZOLE SODIUM 40 MG DR TABLET PO SCH (07:52)
[2021-01-28] MEDS: HEPARIN SODIUM,PORCINE 5,000 UNITS/ML VIAL SQ SCH ×2 (07:53→19:54)
[2021-01-28] MEDS: POTASSIUM CHL 10 MEQ/WATER 50 ML IV PRN (10:12)
[2021-01-28] MEDS: MELATONIN 3 MG TABLET PO PRN (21:53)
[2021-01-28] MEDS: ACETAMINOPHEN 325 MG TABLET PO PRN (21:54)
[2021-01-29] MEDS: ACETAMINOPHEN 325 MG TABLET PO PRN (01:54)
[2021-01-29 04:39] VITALS: BP 129/69
[2021-01-29 06:57] LABS: ANION GAP 9 mmol/L (8-16); CALCIUM, TOTAL 8.7 mg/dL (8.8-10.5); CARBON DIOXIDE 30 mmol/L (22-29); CHLORIDE 99 mmol/L (98-107); CREATININE 0.74 mg/dL (0.60-1.30); GLOMERULAR FILTR. RATE CALC > 60 mL/min (>60); GLUCOSE,RANDOM 92 mg/dL (70-110); PHOSPHORUS 3.8 mg/dL (2.5-4.9); POTASSIUM 3.5 mmol/L (3.5-5.1); SODIUM SERUM 138 mmol/L (136-145); UREA NITROGEN, BLOOD 15 mg/dL (7-18)
[2021-01-29 07:26] VITALS: BP 122/74
[2021-01-29] MEDS: LevETIRAcetam 500 MG TABLET PO SCH ×2 (08:43→20:59)
[2021-01-29] MEDS: PANTOPRAZOLE SODIUM 40 MG DR TABLET PO SCH (08:43)
[2021-01-29] MEDS: HEPARIN SODIUM,PORCINE 5,000 UNITS/ML VIAL SQ SCH ×2 (08:43→21:01)
[2021-01-29 11:40] VITALS: BP 126/78
[2021-01-29 17:54] VITALS: BP 124/66
[2021-01-29 19:40] VITALS: BP 110/65
[2021-01-30 00:06] VITALS: BP 124/77
[2021-01-30 04:48] VITALS: BP 123/80
[2021-01-30] MEDS: PANTOPRAZOLE SODIUM 40 MG DR TABLET PO SCH (07:34)
[2021-01-30] MEDS: HEPARIN SODIUM,PORCINE 5,000 UNITS/ML VIAL SQ SCH ×2 (07:34→20:51)
[2021-01-30] MEDS: LevETIRAcetam 500 MG TABLET PO SCH ×2 (07:34→20:51)
[2021-01-30 07:54] LABS: ANION GAP 8 mmol/L (8-16); CALCIUM, TOTAL 8.5 mg/dL (8.8-10.5); CARBON DIOXIDE 30 mmol/L (22-29); CHLORIDE 99 mmol/L (98-107); CREATININE 0.86 mg/dL (0.60-1.30); GLOMERULAR FILTR. RATE CALC > 60 mL/min (>60); GLUCOSE,RANDOM 85 mg/dL (70-110); PHOSPHORUS 3.9 mg/dL (2.5-4.9); POTASSIUM 3.5 mmol/L (3.5-5.1); SODIUM SERUM 137 mmol/L (136-145); UREA NITROGEN, BLOOD 12 mg/dL (7-18)
[2021-01-30 08:35] VITALS: BP 114/76
[2021-01-30 12:44] VITALS: BP 98/63
[2021-01-30 14:00] VITALS: BP 115/73
[2021-01-30 20:05] VITALS: BP 110/78
[2021-01-31 05:36] VITALS: BP 106/66
[2021-01-31 07:43] VITALS: BP 107/67
[2021-01-31] MEDS: HEPARIN SODIUM,PORCINE 5,000 UNITS/ML VIAL SQ SCH ×2 (09:20→20:17)
[2021-01-31] MEDS: LevETIRAcetam 500 MG TABLET PO SCH ×2 (09:20→20:17)
[2021-01-31] MEDS: PANTOPRAZOLE SODIUM 40 MG DR TABLET PO SCH (09:21)
[2021-01-31] MEDS: MULTIVITAMINS WITH MINERALS, THERAPEUTIC TABLET PO SCH (09:21)
[2021-01-31] MEDS: THIAMINE 100 MG TABLET PO SCH (09:21)
[2021-01-31 12:32] VITALS: BP 108/67
[2021-01-31 15:40] VITALS: BP 108/62
[2021-01-31 21:00] VITALS: BP 110/71
[2021-01-31] MEDS: MELATONIN 3 MG TABLET PO PRN (23:17)
[2021-02-01 06:59] LABS: ANION GAP 8 mmol/L (8-16); CALCIUM, TOTAL 8.6 mg/dL (8.8-10.5); CARBON DIOXIDE 27 mmol/L (22-29); CHLORIDE 103 mmol/L (98-107); CREATININE 0.66 mg/dL (0.60-1.30); GLOMERULAR FILTR. RATE CALC > 60 mL/min (>60); GLUCOSE,RANDOM 77 mg/dL (70-110); PHOSPHORUS 3.6 mg/dL (2.5-4.9); POTASSIUM 3.8 mmol/L (3.5-5.1); SODIUM SERUM 138 mmol/L (136-145); UREA NITROGEN, BLOOD 15 mg/dL (7-18)
[2021-02-01] MEDS: HEPARIN SODIUM,PORCINE 5,000 UNITS/ML VIAL SQ SCH (08:12)
[2021-02-01 08:18] VITALS: BP 113/73
[2021-02-01] MEDS ORDERED: MAGNESIUM SULFATE 3 GM in DEXTROSE 5%-WATER 100 ML IV ONE (10:30)
[2021-02-01] MEDS: PANTOPRAZOLE SODIUM 40 MG DR TABLET PO SCH (11:44)
[2021-02-01] MEDS: LevETIRAcetam 500 MG TABLET PO SCH (11:45)
[2021-02-01] MEDS: MULTIVITAMINS WITH MINERALS, THERAPEUTIC TABLET PO SCH (11:45)
[2021-02-01] MEDS: THIAMINE 100 MG TABLET PO SCH (11:45)
[2021-02-01] MEDS ORDERED: LEVE500T53 PO (12:24)
[2021-02-01] MEDS ORDERED: MULT-1239 PO (12:24)
[2021-02-01] MEDS ORDERED: THIA100T80 PO (12:24)
[2021-02-01] MEDS ORDERED: RISP1TAB48 PO (12:24)
[2021-02-01 16:12] VITALS: BP 118/71
[2021-02-01] MEDS ORDERED: RisperiDONE 1 MG TABLET PO SCH (21:00)
== END 2021-02-01 18:00 | disposition home health service (06) | DRG 720 ==
LOC: EMS 01:01 → ICU 10:17 → UNDOADMIN 01-20 10:17 → ICU 01-20 10:17 → 5S 01-24 13:30 → 6S 01-30 13:48 → 5S 01-30 13:48 → UNDODISIN 02-01 18:00
PROVIDERS: ADMIT Hospitalist; ATTEND Internal Medicine
PROC: 0BH17EZ Insertion of Endotracheal Airway into Trachea, Via Natural or Artificial Opening (ICD-10-PCS; principal; 2021-01-18)
PROC: 5A1945Z Respiratory Ventilation, 24-96 Consecutive Hours (ICD-10-PCS; 2021-01-18)
PROC: 5A12012 Performance of Cardiac Output, Single, Manual (ICD-10-PCS; 2021-01-20)
PROC: 4A10X4Z Monitoring of Central Nervous Electrical Activity, External Approach (ICD-10-PCS; 2021-01-24)
DX: A41.9 Sepsis, unspecified organism (principal); I46.9 Cardiac arrest, cause unspecified; J69.0 Pneumonitis due to inhalation of food and vomit; J96.00 Acute respiratory failure, unspecified whether with hypoxia or hypercapnia; K72.00 Acute and subacute hepatic failure without coma; E43 Unspecified severe protein-calorie malnutrition; I48.91 Unspecified atrial fibrillation; R57.8 Other shock; N17.9 Acute kidney failure, unspecified; E87.2 Acidosis; D64.9 Anemia, unspecified; I45.10 Unspecified right bundle-branch block; F20.9 Schizophrenia, unspecified; J98.11 Atelectasis; T42.4X1A Poisoning by benzodiazepines, accidental (unintentional), initial encounter; Z20.822 Contact with and (suspected) exposure to COVID-19; N39.0 Urinary tract infection, site not specified; E83.42 Hypomagnesemia; E87.1 Hypo-osmolality and hyponatremia; E87.6 Hypokalemia; R73.9 Hyperglycemia, unspecified; F32.9 Major depressive disorder, single episode, unspecified; F98.8 Other specified behavioral and emotional disorders with onset usually occurring in childhood and adolescence; I49.01 Ventricular fibrillation; M62.82 Rhabdomyolysis; Z79.899 Other long term (current) drug therapy; Z86.61 Personal history of infections of the central nervous system; Y92.89 Other specified places as the place of occurrence of the external cause; Z68.1 Body mass index [BMI] 19.9 or less, adult
CPT/HCPCS: 36600; 70450; 71045; 71275; 72125; 74177; 74230; 80048; 80053; 80074; 81001; 81002; 82040; 82140; 82550; 82570; 82728; 82805; 83516; 83540; 83550; 83605; 83690; 83735; 83880; 83930; 84100; 84132; 84300; 84484; 84540; 85025; 85379; 85384; 85610; 85730; 86706; 86707; 87040; 87081; 87086; 87340; 87350; 92524; 92526; 92610; 92950; 93005; 93306; 94002; 94003; 95816; 97110; 97116; 97162; 97530; 99291; C9113; G0378; G0480; G0481; J0171; J0282; J0461; J0712; J1644; J2060; J2543; J2704; J2916; J3475; J3480; J3490; J7030; J7050; J7060; Q9967; 36415-L1; 36415-TC; U0003